=== PATIENT | male | born 1955 | race Caucasian/White ===

== ENCOUNTER 2020-01-24 13:37 | Inpatient (IN) | payer MEDICAID ==
[2020-01-24] VITALS (7 sets, daily range): BP systolic 117–146; BP diastolic 64–86; BMI 28.1
[~2020-01-24] VITALS: Ht 177.8 cm; Wt 88.5 kg
--- NOTE | ~2020-01-24 | HEMODYNAMI ---
PATIENT:REYES HAIR MEDICAL RECORD: [id number] : 51 LOCATION:[facility] ADMISSION DATE: 01/24/20 Generatedon:01/26/202013:00 Patient name: REYES HAIR Patient #: [id number] SSN: : 1955 Date of study: 01/26/2020 Page: Of Hemodynamic Procedure Report Patient Data Patient Demographics Procedure consent was obtained First Name: REYES Gender: Male Last Name: LAXMI : 1955 Middle Initial: E Age: 64 year(s) Patient #: [id number] Race: Unknown Additional ID: [id number] Contact details [address]: [address] [address] State: [place] City: [place] Zip code: [address] Past Medical History Allergies: No known allergies Admission Admission Data Admission Date: 01/24/2020 Admission Time: 16:03 Room #: .2214 Height (in.): 70 BSA: 2.06 (m2) Height (cm.): 177.8 BMI: 27.98 (kg/m2) Weight (lbs.): 195 Weight (kg.): 88.45 Procedure Procedure Types Cath Procedure Peripheral Cath Diagnostic Procedure Math And Physics Instructor Peripheral Procedures Abd/Extremity Extremities Bilat Lower Extremity Procedure Description Procedure Date Procedure Date: 01/26/2020 Procedure Start Time: 11:42 Procedure Staff Name Function Cesar Stark MD Performing Physician Radha Farrell RT Systems Support Specialist Doris Sneed RN Nurse Mike Rodrigues RT Scrub Tommie Noble Additional personnel Procedure Data Cath Procedure Fluoroscopy Diagnostic fluoroscopy Total fluoroscopy Time: 12 time: 12 min min Diagnostic fluoroscopy Total fluoroscopy dose: 315 dose: 315 mGy mGy Contrast Material Contrast Material Type Amount (ml) Isovue 300 55 Procedure Medications Medication Administration Route Dosage Nitroglycerin IC/IA I.A. 300 mcg Radial Cocktail I.A. 1 syringe (Verapamil 2mg/Nitro 400mcg/Heparin 1500units) Heparin Flush Bag added to field 3 bags (1000units/500ml NS) Lidocaine 1% added to field 20 Nitroglycerin IC/IA I.A. 300 mcg Nitroglycerin IC/IA I.A. 200 mcg Hemodynamics Rest BSA: 2.06 (m2) O2 Consumption: Estimated: 280.16 (ml/min) O2 Consumption indexed : Estimated:136 (ml/min/m) Pre Cath Intra NCS Post Cath Medications Time Medication Route Dose Verified Delivered Reason Notes Eff ectiveness by by 12:10:16 Nitroglycerin I.A. 300 mcg Cesar Guerrero IC/IA Lincoln Stark MD MD 12:14:18 Radial Cocktail I.A. 1 Cesar Cesar (Verapamil syringe Lincoln Stark MD 2mg/Nitro MD 400mcg/Heparin 1500units) 12:14:37 Heparin Flush added 3 bags Cesar Guerrero Bag to Lincoln Stark MD (1000units/500ml field NS) 12:14:48 Lidocaine 1% added 20ml Cesar Guerrero to vial Lincoln Stark MD field 12:27:39 Nitroglycerin I.A. 300 mcg Cesar Guerrero IC/IA Lincoln Stark MD MD 12:42:08 Nitroglycerin I.A. 200 mcg Cesar Cesar used for IC/IA Lincoln Stark MD procedure MD Procedure Log Time Note 10:10:03 Patient Height : 70 inches 10:10:10 Patient Weight : 195 lbs 10:11:31 Use device set IR Diagnostic 10:12:35 Micropuncture VSI 4FR kit opened to sterile field. 10:12:36 Tegaderm 4 x 4 (1626W) opened to sterile field. 10:12:37 Sterile Angiographic Pack opened to sterile field. 10:12:38 Bag Decanter () opened to sterile field. 10:12:38 ACIST Manifold (68080) opened to sterile field. 10:12:39 ACIST Hand Control (14299) opened to sterile field. 10:12:40 ACIST Syringe (24015) opened to sterile field. 10:26:42 - 10:55:05 Time tracking: Regular hours (M-F 7:00 - 5:00) 11:02:07 TUBING Contrast Injection High Pressure (VVL080V) opened to sterile field. 11:37:50 Plan of Care:Hemodynamics will remain stable., Cardiac rhythm will remain stable., Comfort level will be maintained., Respiratory function will remain adequate., Patient/ family verbilizes understanding of procedure., Procedure tolerated without complication., Recovers from procedure without complications.. 11:37:59 Patient received from Med/Surg to IR Alert and oriented. Tansferred to table in Supine position. 11:38:02 Signed procedure consent form obtained from patient. 11:38:03 - 11:38:13 H&P Date Dictated: 01/26/2020 Within 30 days and on chart.. 11:38:15 Pre-procedure instructions explained to patient. 11:38:16 Pre-op teaching completed and patient verbalized understanding. 11:38:19 Family unavailable. 11:38:22 Patient NPO since Midnight. 11:38:31 Patient allergic to No known allergies 11:38:34 Is the patient allergic to Iodine/contrast media? No. 11:38:43 - 11:38:44 ----Pre-sedation anethsthesia assessment.----see anesthesia notes for monitoring of patient during patient 11:39:32 - 11:39:38 Pre procedure: right dorsailis pedis pulse Doppler 11:39:42 Pre procedure: left dorsailis pedis pulse Doppler 11:39:46 Pre procedure: right posterior tibial pulse Doppler 11:39:49 Pre procedure: left posterior tibial pulse Doppler 11:39:58 Right groin area was prepped with chlora-prep and draped in sterile fashion 11:40:02 Physician arrived 11:40:02 Final Timeout: patient, procedure, and site verified with staff and physician. All members of the team are in agreement. 11:40:04 --------ALL STOP TIME OUT------ 11:40:19 Fire Safety Assessment: A--An alcohol-based skin anteseptic being used preoperatively., C--Open oxygen or nitrous oxide is being used. 11:40:28 3a) 45-59 Moderately reduced kidney function. 11:41:53 Procedure started. 11:41:53 Full Disclosure recording started 11:42:01 Local anesthetic to Pedal area with Lidocaine 1% by Cesar Stark MD.INITIAL ACCESS ONLY 11:42:20 Arterial access obtained using ultrasound guidance. 11:45:47 SHEATH 6FR Slender (801060) opened to sterile field. 11:59:00 NITINOL .018 80cm wire (Z405351) opened to sterile field. 12:01:43 CXI Catheter 90cm (R14352) opened to sterile field. 12:02:22 GLIDE WIRE ANGLE 260cm (EO1644) opened to sterile field. 12:02:34 TORQUE DEVICE PLASTIC .038 ( TD01) opened to sterile field. 12:07:02 ROADRUNNER .035 260 glide wire (T27924) opened to sterile field. 12:10:16 Nitroglycerin IC/IA 300 mcg I.A. was administered by Cesar Stark MD; ; Verbal order read back and verified. 12:10:19 CHOICE PT Extra Support J 300cm guide wire ([id number]) opened to steril e field. 12:10:52 INFLATOR BasixTOUCH (FF5820) opened to sterile field. 12:12:26 Inflate balloon Inflation number: 1 A NANOCROSS ELITE 2 X 120 X 150 ([id number]) was prepped and advanced across the Undefined1 , then inflated . 12:13:09 Jibbigokone Medium Atherectomy System (H1-M) opened to sterile field. 12:14:18 Radial Cocktail (Verapamil 2mg/Nitro 400mcg/Heparin 1500units) 1 syring e I.A. was administered by Cesar Stark MD; ; Verbal order read back and verified. 12:14:37 Heparin Flush Bag (1000units/500ml NS) 3 bags added to field was administered by Cesar Stark MD; ; Verbal order read back and verified. 12:14:48 Lidocaine 1% 20ml vial added to field was administered by Cesar Stark MD; ; Verbal order read back and verified. 12:27:39 Nitroglycerin IC/IA 300 mcg I.A. was administered by Cesar Stark MD; ; Verbal order read back and verified. 12:30:35 Inflate balloon Inflation number: 2 A IN.PACT Admiral 5 x 150 x 130 DCB balloon ([id number]) was prepped and advanced across the Undefined1 , then inflated. 12:41:12 Inflate balloon Inflation number: 3 A Evercross 5 x 4 x 135 Balloon ([id number]) was prepped and advanced across the Undefined1 , then inflated . 12:42:08 Nitroglycerin IC/IA 200 mcg I.A. was administered by Cesar Stark MD; used for procedure; Verbal order read back and verified. 12:46:39 Procedure ended.(Physican Out) 12:59:09 Fluoroscopy time 12.00 minutes. 12:59:12 Fluoroscopy dose: 315 mGy 12:59:12 Flurop Dose total: 315 12:59:19 Contrast amount:Isovue 300 55ml. 12:59:22 Procedure and supply charges have been captured, reviewed, submitted an d are correct. 13:00:18 Report given to PCU. Intervention Summary Intervention Notes Time ActionType Lesion and Equipment Used Action# Pressure Duration Attributes 12:12:26 Inflate Undefined1 NANOCROSS ELITE 1 0 00:00 balloon 2 X 120 X 150 ([id number]) 12:30:35 Inflate Undefined1 IN.PACT Admiral 2 0 00:00 balloon 5 x 150 x 130 DCB balloon ([id number]) 12:41:12 Inflate Undefined1 Evercross 5 x 4 3 0 00:00 balloon x 135 Balloon ([id number]) Device Usage Item Name Manufacture Quantity Catalog Number [facility] Darrin godinez [facility] Lot# / Charge Number Stock Stock Serial# Code Micropuncture VSI VASCULAR 1 7266V 640479 734081 5 VSI 4FR kit SOLUTIONS Tegaderm 4 x 4 3M 1 1626W 370409 516647 187474 5 (1626W) Sterile Cardinal 1 [id number] 793976 106139 5 Angiographic Health Pack Bag Decanter Microtek 1 2001S 311451 02139 627318 5 (2001S) Medical Inc. ACIST Manifold Acist 1 45936 625342 863496 742183 5 (65649) Medical Systems Inc ACIST Hand Acist 1 78943 467159 584151 430541 5 Control (76717) Medical Systems Inc ACIST Syringe Acist 1 55553 726237 208499 267197 20 (94828) Medical Systems Yantra TUBING Contrast Merit 1 YHR934T 255042 852691 359099 5 Injection High Medical Pressure (IIW847P) SHEATH 6FR Terumo 1 [id number] 109300 077520 425264 5 Slender (80-1060) NITINOL .018 Medtronic 1 I093942 756235 499308 5 80cm wire (L679155) CXI Catheter Cook Medical 1 J24139 360401 446269 119999 5 [id number] 90cm (A57646) GLIDE WIRE ANGLE Terumo 1 UI1556 842050 464784 210011 5 260cm (PI6701) TORQUE DEVICE Beulah 1 TD01 446744 225808 761512 5 PLASTIC .038 ( Scientific TD01) ROADRUNNER .035 Cook Medical 1 C20986 261210 039654 661390 5 [id number] 260 glide wire (H89015) CHOICE PT Extra Beulah 1 [id number] 748899 20190328 729040 5 Support J 300cm Scientific guide wire ([id number]) INFLATOR Merit 1 SS2463 342782 034473 232916 5 BufferBox (RO8002) NANOCROSS ELITE Medtronic 1 [id number] 560103 356865 390761 1 2 X 120 X 150 ([id number]) Hawkone Medium Medtronic 1 H1-M 250046 995572 56 5 Atherectomy System (H1-M) IN.PACT Admiral Medtronic 1 [id number] 919985 0154523 541035 5 5 x 150 x 130 DCB balloon ([id number]) Evercross 5 x 4 Medtronic 1 [id number] 193148 193999 343455 5 x 135 Balloon ([id number]) Signature Audit Calvin Stage Time Signature Unsigned Intra-Procedure 01/26/2020 Radha Farrell 1:00:42 PM RT(R) [id number] [place] [address]
[~2020-01-24 13:37] MED LIST: ASPIRIN81 MG PO; BACLOFEN20 M1 PO; EFFIENT5 MG PO; HYDROCODONE-APA1 TAB PO; LOPRESSOR25 MG PO; NEURONTIN 300300 MG PO; PAMELOR 25 MG C25 MG PO; PAMELOR75 MG PO; PROTONIX20 MG PO; ULTRAM50 MG PO; VANCOMYCIN 1 GM/1 G1 IV; ZOCOR40 MG PO
[2020-01-24 14:40] LABS: BASOPHILS 0.3 % (0-2); EOSINOPHILS 4.8 % (0-7); HEMATOCRIT 37.5 % (42.0-54.0); HEMOGLOBIN 12.1 g/dL (13.5-17.5); IMMATURE GRANULOCYTES 0.2 % (0-5); LYMPHOCYTES 32.3 % (15-50); MCH 29.8 pg (26.0-34.0); MCHC 32.3 g/dL (31.0-37.0); MCV 92.4 fL (80.0-100.0); MEAN PLATELET VOLUME 9.8 fL (7.4-10.4); NEUTROPHILS 50.4 % (40-80); PLATELET COUNT 234 10x3/uL (130-400); RBC 4.06 10x6/uL (4.20-6.10); RDW 13.4 % (11.5-14.5); WBC 6.1 10x3/uL (4.8-10.8)
[2020-01-24 14:55] LABS: ANION GAP 13.1 mmol/L (8-16); CALCIUM 9.1 mg/dL (8.5-10.1); CARBON DIOXIDE 28.1 mmol/L (21.0-32.0); CREATININE - SERUM 1.3 mg/dL (0.6-1.3); POTASSIUM - SERUM 5.2 mmol/L (3.5-5.1)
[2020-01-24 15:01] LABS: ALBUMIN 3.5 g/dL (3.4-5.0); BILIRUBIN - TOTAL 0.83 mg/dL (0.2-1.3); PROTEIN - SERUM 7.5 g/dL (6.4-8.2)
[2020-01-24 15:37] LABS: INR 1.04 (0.85-1.17); PROTIME 13.5 SECONDS (11.6-15.0)
--- NOTE | 2020-01-24 17:29 | NUR ---
CLINDIMYCIN STOPPED WITH COMPLETED 667
--- NOTE | 2020-01-24 18:04 | NUR ---
PATIENT ADMITTED TO ROOM 2214. TWO GUARDS AT BEDSIDE. ADMISSION COMPLETE. DINNER ORDERED FOR PATIENT AND GUARDS. SPRITE GIVEN TO PATIENT AND ONE GUARD PER REQUEST. PATIENT RIGHT FOOT PROPPED ON PILLOW. DENIES FURTHER NEEDS. WILL CONTINUE TO MONITOR.
--- NOTE | 2020-01-25 03:13 | NUR ---
PATIENT IN BED RESTING WITH NO NEEDS AT THIS TIME. ALERT AND ORENTED ABLE TO VOICE NEEDS AND WANTS TO STAFF. JOMAR AT BEDSIDE. PORT TO RIGHT CHEST WITH NS AT 125 ML/HR. INCENTIVE SPIROMETER IN REACH AT BEDSIDE WITH WATER . EDUCATED ON HOW TO [place] INCENTIVE SPRIOMETER. SCD'S PLACED ON PT. CALL LIGHT IN REACH. CHECKED OFTEN FOR NEEDS AND SAFETY.
[2020-01-25 04:00] VITALS: BP 112/61
[2020-01-25 04:35] LABS: BASOPHILS 0.2 % (0-2); EOSINOPHILS 4.2 % (0-7); HEMATOCRIT 32.4 % (42.0-54.0); HEMOGLOBIN 10.3 g/dL (13.5-17.5); IMMATURE GRANULOCYTES 0.2 % (0-5); LYMPHOCYTES 34.5 % (15-50); MCH 29.3 pg (26.0-34.0); MCHC 31.8 g/dL (31.0-37.0); MEAN PLATELET VOLUME 9.6 fL (7.4-10.4); MONOCYTES 10.9 % (2-11); PLATELET COUNT 214 10x3/uL (130-400); RBC 3.52 10x6/uL (4.20-6.10); RDW 13.5 % (11.5-14.5); WBC 5.5 10x3/uL (4.8-10.8)
[2020-01-25 05:10] LABS: ALBUMIN 2.7 g/dL (3.4-5.0); ANION GAP 11.3 mmol/L (8-16); BILIRUBIN - TOTAL 0.42 mg/dL (0.2-1.3); CALCIUM 8.4 mg/dL (8.5-10.1); CREATININE - SERUM 1.5 mg/dL (0.6-1.3); MAGNESIUM - SERUM 1.4 mg/dL (1.8-2.4); PHOSPHOROUS 3.5 mg/dL (2.5-4.9); PROTEIN - SERUM 6.3 g/dL (6.4-8.2)
[2020-01-25 05:22] LABS: POTASSIUM - SERUM 4.3 mmol/L (3.5-5.1)
--- NOTE | 2020-01-25 08:46 | NUR ---
HE HAS HAD THE CTA DONE, HE IS WAKE,ALERT. HAS THE GUARD AT THE BEDSIDE. HE IS USING THE PAC FOR PAIN. THE LEFT TOP OF HIS FOOT IS RED WITH THE SKIN MISSING.
[2020-01-25 09:31] VITALS: BP 118/63; BP 155/77
[2020-01-25 12:37] VITALS: Ht 177.8 cm; Wt 88.5 kg
[2020-01-25 13:29] VITALS: BP 116/56
[2020-01-25 17:50] VITALS: BP 119/62
[2020-01-25 20:00] VITALS: BP 125/65
[2020-01-26] VITALS (10 sets, daily range): BP systolic 110–146; BP diastolic 58–79
--- NOTE | 2020-01-26 02:50 | NUR ---
PT RESTING IN BED. EYES CLOSED. NO SIGNS OF DISTRESS. BREATHING EVEN AND UNLABORED. IV SITE RT CHEST PORT. DRESSING CLEAN DRY AND INTACT. NO SIGNS OF INFECTION. LUNG SOUNDS CLEAR. BOWEL SOUNDS ACTIVE. SKIN CLEAN DRY AND INTACT. RT FOOT DRESSING CLEAN DRY AND INTACT. SCDS ON. BED RAILS UPX2. GUARD AT BEDSIDE. WILL CONTINUE PLAN OF CARE. CALL LIGHT IN REACH. BED LOWERED AND LOCKED. BED RAILS UPX2.
--- NOTE | 2020-01-26 04:01 | NUR ---
I have reviewed this patient and I concur with the Shift Assessment completed by the Licensed Practical Nurse today this shift.
[2020-01-26 04:34] LABS: BASOPHILS 0.3 % (0-2); EOSINOPHILS 5.1 % (0-7); HEMATOCRIT 34.8 % (42.0-54.0); HEMOGLOBIN 11.2 g/dL (13.5-17.5); IMMATURE GRANULOCYTES 0.3 % (0-5); LYMPHOCYTES 27.7 % (15-50); MCH 29.4 pg (26.0-34.0); MCHC 32.2 g/dL (31.0-37.0); MCV 91.3 fL (80.0-100.0); MEAN PLATELET VOLUME 9.6 fL (7.4-10.4); MONOCYTES 10.6 % (2-11); PLATELET COUNT 228 10x3/uL (130-400); RBC 3.81 10x6/uL (4.20-6.10); RDW 13.3 % (11.5-14.5); WBC 5.9 10x3/uL (4.8-10.8)
[2020-01-26 05:12] LABS: ANION GAP 10.7 mmol/L (8-16); CALCIUM 8.6 mg/dL (8.5-10.1); CARBON DIOXIDE 27.8 mmol/L (21.0-32.0); CREATININE - SERUM 1.5 mg/dL (0.6-1.3); MAGNESIUM - SERUM 1.4 mg/dL (1.8-2.4); PHOSPHOROUS 3.7 mg/dL (2.5-4.9); POTASSIUM - SERUM 4.5 mmol/L (3.5-5.1)
--- NOTE | 2020-01-26 07:49 | NUR ---
PT LYING IN BED ON RT SIDE, C/O AT BEDSIDE, PT IS ASLEEP EASILY AWAKENED, RT PORT NS AT 125, AREA IS CDI, LUNGS CTA, RT FOOT RED NO S/SX OF DISTRESS, CL IN REACH, ASSUME PT CARE
--- NOTE | 2020-01-26 09:39 | NUR ---
I have reviewed this patient and I concur with the Shift Assessment completed by the Licensed Practical Nurse today this shift.
--- NOTE | 2020-01-26 15:24 | NUR ---
PT LYING IN BED, NO S/SX OF DISTRESS, PT USING URINAL, C/O AT BEDSIDE, PT KNOWS TO KEEP LEG STILL FOR 6 HOURS AFTER ARTERIOGRAM. GAVE PT SANDWICH TRAY PT WAS IN SURGERY FOR LUNCH, CHANGED ORDER TO REG DIET. NO OTHER NEEDS VOICED, CONTINUE WITH PLAN OF CARE
--- NOTE | 2020-01-26 21:21 | NUR ---
PT SITTING UP BED WATCHING TV. RATES PAIN 7/10. REMINDED PT TO USE ASSOCIATE SALES. BANDAGES TO RIGHT FOOT C/D/I. PULSES PALPABLE. GAVE SCHEDULED MEDS. ASSESSMENT COMPLETE PER FLOW-SHEET. NO OTHER NEEDS. GUARD AT BEDSIDE. WILL CONTINUE TO MONITOR.
[2020-01-27] VITALS: BP 117/55
[2020-01-27 04:00] VITALS: BP 114/64
[2020-01-27 05:35] LABS: BASOPHILS 0.1 % (0-2); EOSINOPHILS 0.5 % (0-7); HEMOGLOBIN 10.7 g/dL (13.5-17.5); IMMATURE GRANULOCYTES 0.1 % (0-5); LYMPHOCYTES 13.9 % (15-50); MCH 29.2 pg (26.0-34.0); MCHC 32.4 g/dL (31.0-37.0); MCV 89.9 fL (80.0-100.0); MEAN PLATELET VOLUME 9.4 fL (7.4-10.4); MONOCYTES 9.5 % (2-11); NEUTROPHILS 75.9 % (40-80); PLATELET COUNT 227 10x3/uL (130-400); RBC 3.67 10x6/uL (4.20-6.10); RDW 13.3 % (11.5-14.5)
[2020-01-27 05:38] LABS: WBC 8.6 10x3/uL (4.8-10.8)
[2020-01-27 05:47] LABS: ANION GAP 14.9 mmol/L (8-16); CALCIUM 8.7 mg/dL (8.5-10.1); CARBON DIOXIDE 23.8 mmol/L (21.0-32.0); CREATININE - SERUM 1.3 mg/dL (0.6-1.3); MAGNESIUM - SERUM 1.5 mg/dL (1.8-2.4); PHOSPHOROUS 3.1 mg/dL (2.5-4.9); POTASSIUM - SERUM 4.7 mmol/L (3.5-5.1)
[2020-01-27 08:00] VITALS: BP 127/76
--- NOTE | 2020-01-27 10:46 | NUR ---
CHANGED PT DRESSING ON RT FOOT, PT IN EXCRUCIATING PAIN, GAVE PT BOLUS AND CHANGED UNEMPLOYMENT BENEFITS CLAIMS TAKER OUT. C/O AT BEDSIDE, NO OTHER NEEDS VOICED, CONTINUE WITH PLAN OF CARE
--- NOTE | 2020-01-27 11:47 | NUR ---
PAGED DR HORN IN REGARDS TO POSSIBLE PT DC, PENDING CALL BACK
[2020-01-27 12:05] VITALS: BP 149/74
[2020-01-27] MEDS ORDERED: PLAVIX75 MG PO (15:42)
[2020-01-27 16:00] VITALS: BP 146/71
--- NOTE | 2020-01-27 17:16 | NUR ---
I have reviewed this patient and I concur with the Shift Assessment completed by the Licensed Practical Nurse today this shift.
--- NOTE | 2020-01-27 18:33 | NUR ---
PT BEING DC BACK TO FACILITY PT CAME FROM, DC ORDERS AND REPORT CALLED TO HOSPITAL NURSE, DAVE FOX BY ROGELIO SINCLAIR. ALL QUESTIONS ANSWERED NO OTHER NEEDS
--- NOTE | 2020-01-27 19:47 | NUR ---
PT LEFT FLOOR VIA WHEELCHAIR ESCORTED BY 3 GUARDS FOR TRANSPORT. DISCHARGE PAPERWORK DONE AND REPORT CALLED BY DAYSHIFT NURSE.
--- NOTE | 2020-01-28 10:13 | MORECARE ---
CASE MANAGEMENT DISCHARGE SUMMARY PATIENT: REYES HAIR UNIT: [id number] ADM DATE: 01/24/20 AGE: 64 : [birth year] SEX: M ROOM/BED: D.2214 AUTHOR: JAMARI,DOC PHYSICIAN: REFERRING PHYSICIAN: PEÑA SAMPSON MD DATE OF SERVICE: 01/28/20 Discharge Plan Patient Name: REYES HAIR Facility: [facility]:[place] : 1955 Planned Disposition: Court\Law Enforcement Anticipated Discharge Date: Discharge Date: 01/27/2020 Expected LOS: Initial Reviewer: [email or web address] Initial Review Date: 01/24/2020 Generated: 01/28/20 11:12 am Comments DCP- Discharge Planning Updated by [email or web address]: Paty Sherman on 01/28/20 9:[address] LATE ENTRY 01/27/20 Patient Name: REYES HAIR Admission Status: ER Accout number: [id number] Admission Date: 01-24-2020 : 1955 Admission Diagnosis:ATHSCL [place] 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 PATIENT HAS A GUARD AT BEDSIDE. CM WILL CONTINUE TO FOLLOW AND ASSIST NEEDED WITH DISCHARGE PLANNING / NEEDS. Hot Stone Setter: Paty Sherman DCPIA - Discharge Planning Initial Assessment Updated by [email or web address]: Paty Sherman on 01/28/20 10:09 am * Is the patient Alert and Oriented? Yes * How many steps to enter\exit or inside your home? * PCP [facility] * Pharmacy [facility] * Preadmission Environment Other * Other Environment LONG TERM INMATE * Facility Name [facility] * ADLs Independent * Verbal permission to speak to the caregivers and representatives has been obtained from the patient. N/A * Community resources currently utilized None * Additional services required to return to the preadmission environment? No * Can the patient safely return to the preadmission environment? Yes * Has this patient been hospitalized within the prior 30 days at any hospital? No External Providers External Provider: [facility] Next Contact Date: Service Request Date: Service Type: Resolution: Reviewer: Comments: Patient Name: REYES HAIR Page [phone] at 1013 All edits/amendments must be made on the electronic document DICTATION DATE: 01/28/20 1012 MANAGER RESTAURANT: GLENDY 01/28/20 1012 RPT#: [id number] DC DATE:01/27/20 STATUS: DIS IN [facility] [address] [place] [address] END OF REPORT
== END 2020-01-27 19:52 | DRG 271 ==
LOC: D.ER 13:37 → D.MS 16:03
PROVIDERS: Family Medicine; General Practice; ADMIT Family Medicine; ATTEND Family Medicine
PROC: 04CM3ZZ Extirpation of Matter from Right Popliteal Artery, Percutaneous Approach (ICD-10-PCS; 2020-01-26)
PROC: 047K3Z1 Dilation of Right Femoral Artery using Drug-Coated Balloon, Percutaneous Approach (ICD-10-PCS; 2020-01-26)
PROC: 047M3Z1 Dilation of Right Popliteal Artery using Drug-Coated Balloon, Percutaneous Approach (ICD-10-PCS; 2020-01-26)
PROC: 04CK3ZZ Extirpation of Matter from Right Femoral Artery, Percutaneous Approach (ICD-10-PCS; principal; 2020-01-26 10:30)
DX: I70.235 Atherosclerosis of native arteries of right leg with ulceration of other part of foot (principal); L03.115 Cellulitis of right lower limb; I25.10 Atherosclerotic heart disease of native coronary artery without angina pectoris; D64.9 Anemia, unspecified; I10 Essential (primary) hypertension; E78.5 Hyperlipidemia, unspecified; K21.9 Gastro-esophageal reflux disease without esophagitis; L97.519 Non-pressure chronic ulcer of other part of right foot with unspecified severity; J43.9 Emphysema, unspecified; R91.1 Solitary pulmonary nodule

== ENCOUNTER 2020-03-05 06:53 | Day surgery (SDC) | payer OTHER ==
[~2020-03-05] VITALS: Ht 177.8 cm; Wt 86.4 kg
--- NOTE | ~2020-03-05 | OP ---
PATIENT NAME: REYES HAIR MEDICAL RECORD: [id number] :[birth year] LOCATION:.[facility] ADMISSION DATE: SURGEON: CARLOS HORN MD DATE OF OPERATION: 03/05/2020 PREOPERATIVE DIAGNOSIS: Fecal occult blood positivity. POSTOPERATIVE DIAGNOSES: 1. Fecal occult blood positivity. 2. Inadequate large bowel prep. PROCEDURE: Total colonoscopy to cecum. SURGEON: Carlos Horn MD CARBON [employer] OPERATOR: None. BLOOD LOSS: Minimal. ANESTHESIA: IV sedation. COMPLICATIONS: None. The risks, possible complications and alternatives to the procedure were explained to the patient. He elects to proceed. ENDOSCOPIC COURSE: The patient was conveyed to endoscopy suite electively on 03/05/2020. IV sedation was induced by the anesthesia staff. The patient was placed in the Abel position. A digital rectal examination was performed. The prostate was symmetric and without nodules. A colonoscope was inserted through the anus. It was easily advanced to the cecum. I then slowly withdrew the endoscope. I dragged the folds. I irrigated and aspirated extensively. A combination of normal imaging and narrow band imaging were utilized. The prep was inadequate. A retroflexed view was obtained in the rectum. I then unretroflexed the scope and removed it under direct vision. I would recommend an upper endoscopy. The patient could have a colonoscopy while under the same anesthetic. He likely will require at least a 2-day prep as the prep was inadequate today. There is no need for the patient to follow up with me in the office unless he develops a complication related to this operative procedure, which is very unlikely. TRANSINT:[id number] Voice Confirmation ID: [id number] DOCUMENT ID: [id number] CARLOS HORN MD CC: NESHA COOL MD [id number] DICTATION DATE: 03/05/20 1129 PACKING SUPERVISOR: 03/05/20 1154 REG [facility] [address] [place] [address]
--- NOTE | ~2020-03-05 | HP ---
PATIENT: REYES HAIR MEDICAL RECORD: [id number] ACCOUNT: [id number] LOCATION:[facility] : [birth year] ADMISSION DATE: 03/05/20 PCP: NESHA COOL MD HISTORY AND PHYSICAL EXAMINATION CHIEF COMPLAINT: Heme-positive stools. HISTORY OF PRESENT ILLNESS: The patient has heme-positive stools. I know the patient as I have placed one of his subcutaneous ports. Additionally, he was on my service when the interventional radiologist revascularized his right lower extremity. I examined his right foot today. He has pulses of dorsalis pedis as well as posterior tibial. The right foot is warm. The wound on the dorsum of the right foot appears to be healing. It has excellent granulation tissue. There is no smell to it and it appears smaller. Additionally, it appeared more shallow. PAST MEDICAL AND SURGICAL HISTORY: COPD, history of myocardial infarction, history of CABG, history of 7 coronary stents, hypertension, gastroesophageal reflux. HOME MEDICATIONS: Include Plavix, which he took yesterday. ALLERGIES: No known drug allergies. REVIEW OF SYSTEMS: Negative for HIV or hepatitis. PHYSICAL EXAMINATION: GENERAL: The patient does not appear acutely ill. EARS: External ears appear normal. EYES: Extraocular movements are intact. NECK: Trachea is midline. CHEST: No intercostal retractions. EXTREMITIES: As described above. He also has venous stasis changes involving the right lower extremity. IMPRESSION: 1. Improvement in nonhealing ulcer of the right foot. 2. Heme-positive stools. PLAN: Colonoscopy. TRANSINT:[id number] Voice Confirmation ID: [id number] DOCUMENT ID: [id number] IDALIA HORN MD CC: NESHA COOL MD [id number] DICTATION DATE: 03/05/20 1038 DANCE COACH: 03/05/20 1124 REG [facility] [address] [place] [address]
[~2020-03-05 06:53] MED LIST changes: +PLAVIX75 MG PO
[2020-03-05 07:37] VITALS: BP 123/61; Ht 177.8 cm; Wt 86.4 kg
--- NOTE | 2020-03-05 07:42 | NUR ---
PEPCID 20 MG IV GIVEN TO PT PER ORDER. MEDICATION WOULD NOT SCAN
[2020-03-05 08:03] LABS: HEMATOCRIT 33.7 % (42.0-54.0); HEMOGLOBIN 11.2 g/dL (13.5-17.5); MCH 29.5 pg (26.0-34.0); MCHC 33.2 g/dL (31.0-37.0); MCV 88.7 fL (80.0-100.0); MEAN PLATELET VOLUME 9.5 fL (7.4-10.4); RBC 3.8 10x6/uL (4.20-6.10); RDW 13.5 % (11.5-14.5); WBC 4.5 10x3/uL (4.8-10.8)
--- NOTE | 2020-03-05 13:52 | NUR ---
1209 DRESSED, AWAKE, & ALERT. GIVEN DISCHARGE INFORMATION INCLUDING POST ENDOSCOPIC PROCEDURE DISCHARGE INSTRUCTIONS, MED REC, & COPIES OF LAB, EKG, H&P, OP NOTE. TO [facility] VAN VIA WHEELCHAIR BY [facility] GUARDS X'Judah LACEY R.N.
== END 2020-03-05 12:09 | disposition home or self-care (01) ==
LOC: D.OPS 06:53
PROVIDERS: Anesthesiology; ATTEND Surgery
DX: R19.5 Other fecal abnormalities (principal); J44.9 Chronic obstructive pulmonary disease, unspecified; I25.2 Old myocardial infarction; Z95.1 Presence of aortocoronary bypass graft; I10 Essential (primary) hypertension; K21.9 Gastro-esophageal reflux disease without esophagitis

== ENCOUNTER 2020-03-13 14:01 | Emergency (ER) | payer OTHER ==
[~2020-03-13] VITALS: Ht 177.8 cm; Wt 85.9 kg
[2020-03-13 14:19] VITALS: Ht 177.8 cm; Wt 85.9 kg
[2020-03-13 14:52] LABS: BASOPHILS 0.2 % (0-2); EOSINOPHILS 4.9 % (0-7); HEMATOCRIT 33.3 % (42.0-54.0); HEMOGLOBIN 10.9 g/dL (13.5-17.5); IMMATURE GRANULOCYTES 0.2 % (0-5); LYMPHOCYTES 25.7 % (15-50); MCH 29.1 pg (26.0-34.0); MCHC 32.7 g/dL (31.0-37.0); MCV 88.8 fL (80.0-100.0); MEAN PLATELET VOLUME 9.3 fL (7.4-10.4); MONOCYTES 6.8 % (2-11); NEUTROPHILS 62.2 % (40-80); RBC 3.75 10x6/uL (4.20-6.10); RDW 13.4 % (11.5-14.5); WBC 5.3 10x3/uL (4.8-10.8)
[2020-03-13 14:53] LABS: PLATELET COUNT 253 10x3/uL (130-400)
[2020-03-13 15:07] LABS: CALCIUM 8.9 mg/dL (8.5-10.1); CARBON DIOXIDE 28.5 mmol/L (21.0-32.0); CREATININE - SERUM 1.5 mg/dL (0.6-1.3); POTASSIUM - SERUM 4.5 mmol/L (3.5-5.1)
[2020-03-13 15:13] LABS: ALBUMIN 3.5 g/dL (3.4-5.0); BILIRUBIN - TOTAL 0.46 mg/dL (0.2-1.3); PROTEIN - SERUM 7.7 g/dL (6.4-8.2)
[2020-03-13] MEDS ORDERED: KEFLEX500 MG PO (15:53)
[2020-03-13] MEDS ORDERED: CLEOCIN HCL300 MG PO (15:53)
[2020-03-13 17:11] VITALS: BP 135/74
== END 2020-03-13 17:13 ==
LOC: D.ER 14:01
PROVIDERS: Family Medicine
DX: L03.115 Cellulitis of right lower limb (principal); I12.9 Hypertensive chronic kidney disease with stage 1 through stage 4 chronic kidney disease, or unspecified chronic kidney disease; N18.9 Chronic kidney disease, unspecified; K21.9 Gastro-esophageal reflux disease without esophagitis; M79.671 Pain in right foot